=== PATIENT | female | born 1950 | race Caucasian/White ===

== ENCOUNTER → 2017-11-28 | Outpatient (CLI) | payer MEDICARE, OTHER ==
[~2017-11-28] MED LIST: ACID REDUCER; ALPR.25 PO; ASPI81CH PO; Adult Low Dose81 MG PO; CARV25 PO; CHOL10002; CITRACAL + BON1 EACH PO; ESTR2; FISH1000 PO; LISHYD1012 PO; LISINOPRIL; NIFE30ER; RANI150 PO; VENL150ER PO; VENL37.5; VENL75ER PO; VITAMIN B12-FO1 EACH PO
[2017-11-30 13:31] LABS: Stool Occult Bld Immuno 1 Negative (NEGATIVE)
== END ==
LOC: LAB EV 18:00 → EDSTATUS 11-08 16:00 → LAB FUT 11-08 16:00
PROVIDERS: Internal Medicine
DX: Z12.11 Encounter for screening for malignant neoplasm of colon (principal)
CPT/HCPCS: G0328

== ENCOUNTER 2018-03-30 09:54 | Day surgery (SDC) | payer MEDICARE, OTHER ==
[2018-03-30 11:52] LABS: Performing Lab VERACYTE; Test Name FNA
[2018-04-05 07:35] LABS: Result SEE PATHOTH RESULTS
== END 2018-03-30 22:36 | disposition home or self-care (01) ==
LOC: US 09:54
PROVIDERS: Internal Medicine
PROC: 0GBG3ZX Excision of Left Thyroid Gland Lobe, Percutaneous Approach, Diagnostic (ICD-10-PCS; principal; 2018-03-30)
PROC: 0GBH3ZX Excision of Right Thyroid Gland Lobe, Percutaneous Approach, Diagnostic (ICD-10-PCS; principal; 2018-03-30)
DX: E04.1 Nontoxic single thyroid nodule (principal)
CPT/HCPCS: 10022; 76942

== ENCOUNTER → 2018-12-14 | Outpatient (CLI) | payer MEDICARE, OTHER | END | disposition home or self-care (01) | LOC: LAB 19:37 → LAB SHORT 19:37 | DX: N39.0 Urinary tract infection, site not specified (principal) | CPT/HCPCS: 87086 ==

== ENCOUNTER 2020-06-18 09:35 | Day surgery (SDC) | payer MEDICARE, OTHER ==
[~2020-06-18 09:35] MED LIST changes: +EUTHYROX150 MC1 PO
--- NOTE | 2020-06-18 10:51 | NUR ---
PT TO DAY SURGERY. BAND AID IN PLACE OVER BIOPSY SITE ON RIGHT LATERAL SIDE. SMALL AMOUNT OF DRAINAGE NOTED ON UNDERSIDE OF BAND AID, NOT SEEPING THROUGH. NO SWELLING OR BRUISING NOTED AT BIOPSY SITE. PATIENT DENIES PAIN. PATIENT LYING ON RIGHT SIDE.
--- NOTE | 2020-06-18 11:44 | NUR ---
WRITTEN AND VERBAL D/C INSTRUCTIONS GIVEN TO PT WITH STATED UNDERSTANDING.
== END 2020-06-18 23:03 | disposition home or self-care (01) ==
LOC: US 09:35
DX: K74.60 Unspecified cirrhosis of liver (principal); I10 Essential (primary) hypertension; E78.5 Hyperlipidemia, unspecified; K21.9 Gastro-esophageal reflux disease without esophagitis; Z87.891 Personal history of nicotine dependence; K76.89 Other specified diseases of liver; D12.6 Benign neoplasm of colon, unspecified; Z79.82 Long term (current) use of aspirin; Z79.899 Other long term (current) drug therapy; Z88.0 Allergy status to penicillin; Z88.5 Allergy status to narcotic agent
CPT/HCPCS: 47000; 76942; 88307; 88313

== ENCOUNTER 2021-01-24 09:14 | Day surgery (SDC) | payer MEDICARE, OTHER ==
[~2021-01-24] VITALS: Ht 165.1 cm; Wt 94.1 kg
[~2021-01-24 09:14] MED LIST changes: +Aspirin EC81 MG PO; +CALCIUM CIT 311 EACH PO; +CYAN500 PO; +VITAMIN D325 MC3 PO
== END 2021-01-24 10:56 | disposition home or self-care (01) ==
LOC: ORSCSDS 09:14
PROVIDERS: Internal Medicine Gastroenterology
PROC: 0DJ08ZZ Inspection of Upper Intestinal Tract, Via Natural or Artificial Opening Endoscopic (ICD-10-PCS; principal; 2021-01-24 10:30)
DX: K74.60 Unspecified cirrhosis of liver (principal); Z13.810 Encounter for screening for upper gastrointestinal disorder; I10 Essential (primary) hypertension; Z87.891 Personal history of nicotine dependence; Z79.82 Long term (current) use of aspirin; Z79.899 Other long term (current) drug therapy
CPT/HCPCS: J2704; J7120

== ENCOUNTER → 2022-01-09 | Outpatient (CLI) | payer MEDICARE, OTHER | END | disposition home or self-care (01) | LOC: LAB SHORT 14:00 | DX: R30.0 Dysuria (principal) | CPT/HCPCS: 87086 ==

== ENCOUNTER 2022-12-04 16:28 | Emergency (ER) | payer MEDICARE, OTHER ==
[~2022-12-04] VITALS: Ht 165.1 cm; Wt 99.8 kg
[2022-12-04 17:01] VITALS: BP 98/55
== END 2022-12-04 17:11 | disposition home or self-care (01) ==
LOC: ER 16:28
DX: I95.9 Hypotension, unspecified (principal); T46.5X5A Adverse effect of other antihypertensive drugs, initial encounter; I10 Essential (primary) hypertension; Z88.5 Allergy status to narcotic agent; Z88.1 Allergy status to other antibiotic agents; Z88.0 Allergy status to penicillin; Z79.82 Long term (current) use of aspirin; Z79.899 Other long term (current) drug therapy; Z87.891 Personal history of nicotine dependence; X58.XXXA Exposure to other specified factors, initial encounter
CPT/HCPCS: 99285

== ENCOUNTER 2023-05-18 09:09 | Day surgery (SDC) | payer MEDICARE, OTHER ==
[~2023-05-18] VITALS: Ht 165.1 cm; Wt 99.6 kg
[2023-05-18] MEDS ORDERED: OLME20 (09:31)
[2023-05-18] MEDS ORDERED: Prinivil10 MG (09:31)
[2023-05-18 11:27] VITALS: BP 136/74
--- NOTE | 2023-05-18 11:30 | NUR ---
05/18/23 1130 Kylee Charles DIVERTICULOSIS PAMPHLET PROVIDED PER DR CHAIDEZ'S REQUEST
== END 2023-05-18 11:26 | disposition home or self-care (01) ==
LOC: ORSCSDS 09:09
PROVIDERS: Internal Medicine Gastroenterology
PROC: 0DJ08ZZ Inspection of Upper Intestinal Tract, Via Natural or Artificial Opening Endoscopic (ICD-10-PCS; principal; 2023-05-18 10:15)
PROC: 0DBK8ZX Excision of Ascending Colon, Via Natural or Artificial Opening Endoscopic, Diagnostic (ICD-10-PCS; principal; 2023-05-18 10:15)
DX: K70.30 Alcoholic cirrhosis of liver without ascites (principal); Z12.11 Encounter for screening for malignant neoplasm of colon; Z86.010 Personal history of colon polyps; D12.2 Benign neoplasm of ascending colon; K57.30 Diverticulosis of large intestine without perforation or abscess without bleeding; K64.8 Other hemorrhoids; D69.6 Thrombocytopenia, unspecified; Z79.82 Long term (current) use of aspirin; Z79.899 Other long term (current) drug therapy
CPT/HCPCS: 88305; J0461; J2001; J2405; J2704; J7120; Q9968